=== PATIENT | male | born 1975 | race Caucasian/White ===

== ENCOUNTER 2021-09-05 22:44 | Emergency (ER) | payer SELFPAY ==
[~2021-09-05] VITALS: Ht 175.3 cm; Wt 70.3 kg
--- NOTE | 2021-09-05 23:02 | NUR ---
PT BIBRA C/O OD AT [facility]. PT ABLE TO ANSWER SIMPLE QUESTIONS AND FOLLOW SIMPLE COMMANDS. PT AMBULATED TO RESTROOM TO GIVE URINE SAMPLE. PT ATTACHED TO MONITOR AND POX. MD AT BEDSIDE FOR EVAL. PT GIVEN BLANKET AND CALL LIGHT WITHIN REACH
[2021-09-06] MEDS ORDERED: NALO4SPR NS (02:43)
--- NOTE | 2021-09-06 03:21 | NUR ---
Patient discharged to home in stable condition. Written and verbal after care instructions given. Patient verbalizes understanding of instruction. IV removed. Catheter intact and site benign. Pressure and 4x4 applied to site. No bleeding noted. Pt ambulatory with a steady gait
[2021-09-06 03:23] VITALS: BP 132/78
== END 2021-09-06 03:20 | disposition home or self-care (01) ==
LOC: ER 22:49
DX: T40.411A Poisoning by fentanyl or fentanyl analogs, accidental (unintentional), initial encounter (principal); F17.200 Nicotine dependence, unspecified, uncomplicated; Z60.2 Problems related to living alone; Y92.89 Other specified places as the place of occurrence of the external cause